=== PATIENT | female | born 1960 ===

== ENCOUNTER 2024-09-15 12:23 | Day surgery (SDC) | payer OTHER, SELFPAY ==
[2024-08-28 15:08] VITALS: BMI 22.1
[2024-09-15] VITALS (13 sets, daily range): BP systolic 106–137; BP diastolic 53–98; PULSE 69–99; RESP 13–24; TEMP 36.2–36.9; O2SAT 93–99; BMI 22.1
[2024-09-15] MEDS: ACETAMINOPHEN 325 MG TABLET 975 MG PO (12:51)
[2024-09-15] MEDS: LACTATED RINGERS 1,000 ML 42 ML IV ×2 (12:53→14:39)
--- NOTE | 2024-09-15 13:11 | PM.PREOP ---
Pre-operative Note Interval Note History & Physical reviewed/Exam performed by Physician: Yes Changes to H&P: No H&P completed within 30 days and has changed as indicated here:: 08/27/24
[2024-09-15] MEDS: CEFAZOLIN 2 GM/100 ML PREMIX 100 ML IV (13:43)
--- NOTE | 2024-09-15 13:58 | SUR.OPER ---
Lithotomy on padded OR bed, head on pillow, arms secured on padded arm boards at <90 degrees abduction. Legs secured in padded yellow fins stirrups.
[2024-09-15] MEDS: BUPIVACAINE 0.25% W/ EPI 30 ML VIAL INJ (14:04)
--- NOTE | 2024-09-15 15:37 | P.OP_ITS ---
Operative Date/Time/Diagnoses Date of procedure: 09/15/24 Time of procedure: 15:37 Pre-op diagnosis: Symptomatic cystocele, rectocele and uterine prolapse Post-op diagnosis: same Procedure & Clinicians Procedure: Procedures Operation Date: 09/15/24 14:15 Actual Procedure Side Surgeon p Anterior/Posterior Repair, sacrospinous ligament fixation of cervix Not A pplicable Tonia Aguilera MD Indications: Symptomatic cystocele and rectocele First degree uterine prolapse Surgeon: Tonia Aguilera Anesthesia Type: General and Local Operative Notes Findings: Third-degree cystocele Third-degree rectocele First-degree uterine prolapse Closure Type: primary Specimen(s): none Applied: catheter (To continuous drainage) and other (vaginal packing in place) Estimated blood loss (mL): 50 Blood products transfused: none Procedure in detail: The patient was taken to the operating room where she was placed in the dorsal supine position. After adequate general endotracheal anesthesia was achieved, she was placed in the dorsal lithotomy position, and prepped and draped in the usual sterile fashion. A time-out was performed. Two Allis clamps were placed at the apex of the cystocele. 6 mL of half percent Marcaine with epinephrine were injected and an incision was made with a #10 blade between the 2 Allis clamps. Wide Allis clamps were placed on the midline of the cystocele approximately 6. The mucosa was undermined using the Metzenbaum scissors and the mucosa incised in the midline moving the wide Allis clamps to the edges of the mucosa. The mucosa was dissected off the underlying fascia using an open moistened Ray-Jenifer and a #10 blade. The fascia was reapproximated with 0 Vicryl with a series of horizontal mattress sutures. The excess vaginal mucosa was excised. The mucosa was closed using simple interrupted sutures with 2-0 Vicryl including the underlying fascia to close the space. The weighted speculum was removed from the vagina. Allis clamps were placed at the mucocutaneous junction at the introitus. 6 mL of half percent Marcaine with epinephrine were injected. An incision was made with a #10 blade between the 2 Allis clamps, and a small triangular piece of skin and underlying subcutaneous tissue was removed. Allis clamps were placed in the midline of the rectocele. 10 mL of half percent Marcaine with epinephrine were injected submucosally. The mucosa was undermined using the Metzenbaum scissors and the mucosa incised in the midline, moving the wide Allis clamps to the mucosal edges. The underlying fascia was dissected off of the mucosa using an open moistened Ray-Jenifer and a #10 blade. The space around the right sacrospinus ligament was dissected bluntily until the ligament was identified easily. Using the Capio needle, a stitch with 2-0 PDS was placed into the sacrospinus ligament approximately 2cm from the ischial spine. Using the other end of the needle, a stitch was placed through the right posterior cervix. This stitch was tagged with a hemostat. The fascia was reapproximated using 0 Vicryl with a series of horizontal mattress sutures. After the first few fascial stitches were placed, the SSL suture was tied down. The remainder of the fascia was reapproximated. The excess vaginal mucosa was excised. The mucosa was closed using a series of simple interrupted sutures with 2-0 Vicryl including the underlying fascia to close the space. On the perineum 0 Vicryl was used to reapproximate the levator muscle. The subcutaneous layer was closed with 2-0 Vicryl. The skin was closed with 3-0 chromic in a subcuticular fashion. Several perineal stitches with 2-0 chromic were placed to reapproximate the perineum. Hemostasis was achieved. A Betadine moistened vaginal pack was placed into the vagina. A rectal exam was done and there were no sutures palpable in the rectum. The urine was clear. Sponge, lap, and instrument counts were correct x-2. The patient tolerated the procedure well, was taken to PACU in stable condition. Complications: none Post-operative Condition: stable Disposition: PACU Plan for aftercare: To the center after recovery
--- NOTE | 2024-09-15 18:45 | PC.NURSE ---
1522: Received telephone report from [facility], pt. stable, medicated in OR with torodol for pain at 1515. 1540: Pt. arrived to unit via bed transported by [facility] 1555: 300 mL of clear yellow urine emptied from knight catheter, rola pad has scant rubra discharge and vaginal packing remains in place. 1545: Dr Aguilera at bedside speaking with pts. family and pt. Pt. remains afebrile with stable vital signs. 1700: Pt. sleeping, bed low and locked, call light within reach. 1745: Pt. awake, in low fowlers sipping on water and eating dinner.
[2024-09-15] MEDS: KETOROLAC 30 MG/ML VIAL IV (21:24)
[2024-09-15] MEDS: ESCITALOPRAM 10 MG TABLET PO (21:25)
[2024-09-15] MEDS: MEDROXYPROGESTERONE ACETATE 10 MG TABLET 2.5 MG PO (21:27)
[2024-09-15] MEDS: ACETAMINOPHEN 325 MG TABLET 650 MG PO (21:27)
[2024-09-16 00:38] VITALS: BP 108/66; PULSE 66; RESP 18; TEMP 36.6; O2SAT 95
[2024-09-16] MEDS: ACETAMINOPHEN 325 MG TABLET 650 MG PO ×2 (03:28→09:23)
[2024-09-16] MEDS: KETOROLAC 30 MG/ML VIAL IV ×2 (03:29→09:20)
[2024-09-16 03:36] VITALS: BP 101/59; PULSE 63; RESP 16; TEMP 36.7; O2SAT 97
[2024-09-16 06:05] VITALS: BP 126/75; PULSE 71; RESP 16; TEMP 36.8; O2SAT 99
--- NOTE | 2024-09-16 06:50 | PC.NURSE ---
0615: 300ml of sterile water irrigated into bladder through indwelling knight gely catheter. Knight catheter removed after irrigation. 0625: Patient states she has the urge to void. This RN assisted patient to bathroom to void. Patient voided 300ml of clear urine.
[2024-09-16 09:00] VITALS: BP 124/75; PULSE 77; RESP 16; TEMP 37.6; O2SAT 99
[2024-09-16 09:21] VITALS: BP 124/75; PULSE 77
== END 2024-09-16 10:11 | disposition home or self-care (01) ==
LOC: OR 12:25 → AC 12:27 → LABOR 16:47
PROVIDERS: PCP Family Medicine; Referring Provider Obstetrics & Gynecology; Visit Provider Obstetrics & Gynecology
PROC: (CPT 57282; principal; 2024-09-15 14:15)
DX: N81.2 Incomplete uterovaginal prolapse (principal)
CPT/HCPCS: 57282; 57260; J0690; J1100; J1885; J2250; J2405; J2704; J3010